=== PATIENT | female | born 1985 | race Caucasian/White ===

== ENCOUNTER 2019-02-24 02:34 | Emergency (ER) | payer OTHER ==
--- NOTE | 2019-02-24 03:48 | PDOC ---
Attending Attestation - Resident Resident Name: Aashish Alicia - ED Attending Attestation I have performed the following: I have examined & evaluated the patient, The case was reviewed & discussed with the resident, I agree w/resident's findings & plan - HPI HPI: 02/24/19 04:39 33-year-old female complaining of right flank/right lower quadrant and right suprapubic pain, patient states she's taken several doses of Bactrim without improvement. According to the patient she was told her urine had some blood and due to the dysuria she was given antibiotics. There is no associated vomiting. - Physicial Exam PE: 02/24/19 04:40 Agree with resident's exam - Medical Decision Making 02/24/19 04:42 33-year-old female with suprapubic/right flank pain Plan for labs urinalysis and CT scan for further evaluation IV fluid normal saline given Differential diagnosis includes pyelonephritis, renal colic, cystitis Likely discharge home pending results
[2019-02-24 03:49] VITALS: BMI 24.1
--- NOTE | 2019-02-24 04:31 | PDOC ---
History of Present Illness - General Chief Complaint: Pain Stated Complaint: ABD/BACK PAIN Time Seen by Provider: 02/24/19 03:46 - History of Present Illness Initial Comments: 02/24/19 04:28 33f with no pmh presents to the ED for persistent right flank pain and LRQ pain with dysuria since . She went to a Urgent Care clinic on and was diagnosed with UTi, given a preseciption for 3 days of bactrim Ds BID that she obtained on Saturday. She claims her symptoms persist and that she now has pain over her right back too. Denies fever, chills, Past History - Past Medical History Allergies/Adverse Reactions: Allergies Allergy/AdvReac Type Severity Reaction Status Date / Time No Known Allergies Allergy Verified 02/24/19 03:49 - Suicide/Smoking/Psychosocial Hx Smoking History: Never smoked Have you smoked in the past 12 months: No Information on smoking cessation initiated: No Hx Alcohol Use: No Drug/Substance Use Hx: No *Physical Exam - Vital Signs Last Vital Signs Temp Pulse Resp BP Pulse Ox 98.1 F 70 19 108/69 100 02/24/19 02:34 02/24/19 02:34 02/24/19 02:34 02/24/19 02:34 02/24/19 02:34 *DC/Admit/Observation/Transfer - Discharge Dispostion Condition at time of disposition: Fair - Referrals Referrals: Long Kenny [Primary Care Provider] - - Patient Instructions - Post Discharge Activity
[2019-02-24 04:37] LABS: BASO % 0.8 % (0-2.0); EOS % 1.7 % (0-4.5); HEMATOCRIT 37.5 % (32.4-45.2); LYMPH % 29.6 % (8-40); MCH 31.7 pg (25.7-33.7); MCHC 34.7 g/dl (32.0-36.0); MEAN CELL VOLUME 91.2 fl (80-96); MONO % 10.3 % (3.8-10.2); NEUT % 57.6 % (42.8-82.8); PLATELET COUNT 187 K/MM3 (134-434); RBC 4.11 M/mm3 (3.60-5.2); RDW 12.7 % (11.6-15.6); WHITE BLOOD COUNT 6.4 K/mm3 (4.0-10.0)
--- NOTE | 2019-02-24 04:49 | PDOC ---
History of Present Illness - General Chief Complaint: Pain Stated Complaint: ABD/BACK PAIN Time Seen by Provider: 02/24/19 03:46 - History of Present Illness Initial Comments: 02/24/19 04:44 33f with no pmh presents to the ED for persistent right flank pain and LRQ pain with dysuria since . She went to a Urgent Care clinic on and was diagnosed with UTi, given a preseciption for 3 days of bactrim Ds BID that she obtained on Saturday. She claims her symptoms persist and that she now has pain over her right back too. Denies fever, chills, Past History - Past Medical History Allergies/Adverse Reactions: Allergies Allergy/AdvReac Type Severity Reaction Status Date / Time No Known Allergies Allergy Verified 02/24/19 03:49 - Suicide/Smoking/Psychosocial Hx Smoking History: Never smoked Have you smoked in the past 12 months: No Information on smoking cessation initiated: No Hx Alcohol Use: No Drug/Substance Use Hx: No Review of Systems - Review of Systems Able to Perform ROS?: Yes Is the patient limited Burmese proficient: No Constitutional: No: Symptoms Reported HEENTM: No: Symptoms Reported Respiratory: No: Symptoms reported Cardiac (ROS): No: Symptoms Reported ABD/GI: No: Symptoms Reported : Yes: See HPI, Flank Pain (right) Musculoskeletal: No: Symptoms Reported Integumentary: No: Symptoms Reported Neurological: No: Symptoms reported All Other Systems: Reviewed and Negative *Physical Exam - Vital Signs Last Vital Signs Temp Pulse Resp BP Pulse Ox 98.1 F 70 19 108/69 100 02/24/19 02:34 02/24/19 02:34 02/24/19 02:34 02/24/19 02:34 02/24/19 02:34 - Physical Exam General Appearance: Yes: Nourished, Appropriately Dressed. No: Apparent Distress HEENT: positive: EOMI, DEEP, Normal ENT Inspection Respiratory/Chest: positive: Lungs Clear, Normal Breath Sounds. negative: Chest Tender, Respiratory Distress Cardiovascular: positive: Regular Rhythm, Regular Rate, S1, S2 Female Pelvic Exam: positive: normal external exam (some white, cottage-cheese- like discharge), CMT, other (extreme tenderness upon digital and speculum inspection) Gastrointestinal/Abdominal: positive: Normal Bowel Sounds, Tender (LRQ, suprapubic), Flat, Soft Musculoskeletal: positive: CVA Tenderness (R) Neurologic: positive: Fully Oriented, Alert, Normal Mood/Affect ED Treatment Course - LABORATORY CBC & Chemistry Diagram: 02/24/19 04:17 02/24/19 04:17 Medical Decision Making - Medical Decision Making 02/24/19 05:53 33-year-old female with suprapubic/right flank pain Plan for labs urinalysis and CT scan for further evaluation IV fluid normal saline given Normal basic labs.. questionable urine with small bacteria and trace blood. Pelvic exam significant for tenderness during exam and whitish discharge. Differential diagnosis includes PID, abscess, appendicitis 02/24/19 07:14 Patient signed out to Dr. Trevino *DC/Admit/Observation/Transfer Diagnosis at time of Disposition: Abdominal pain - Discharge Dispostion Condition at time of disposition: Fair - Referrals Referrals: Long Kenny [Primary Care Provider] - - Patient Instructions - Post Discharge Activity
[2019-02-24] MEDS ORDERED: SODIUM CHLORIDE 1,000 ML IV STA (04:52)
[2019-02-24 04:57] LABS: EPI CELLS 1.8 /HPF (0-5/HPF); PH,URINE 5.5 (5.0-8.0); URINE APPEARANCE CLEAR; URINE BACTERIA 18.5 /hpf (NEGATIVE); URINE BILIRUBIN NEGATIVE (NEGATIVE); URINE CASTS 4 /lpf (0-8); URINE COLOR YELLOW; URINE GLUCOSE (UA) NEGATIVE (NEGATIVE); URINE KETONE NEGATIVE (NEGATIVE); URINE LEUK ESTERASE NEGATIVE (NEGATIVE); URINE NITRITE NEGATIVE (NEGATIVE); URINE PROTEIN NEGATIVE (NEGATIVE); URINE RBC 1 /hpf (0-4); URINE UROBILINOGEN 0.2 mg/dL (0.2-1.0); URINE WBC 1 /hpf (0-5)
[2019-02-24 04:59] LABS: ALBUMIN 3.9 g/dl (3.4-5.0); ALK PHOS 51 U/L (45-117); ANION GAP 8 MMOL/L (8-16); BILIRUBIN,TOTAL 0.5 mg/dL (0.2-1); BLOOD UREA NITROGEN 11 mg/dL (7-18); CALCIUM 8.8 mg/dL (8.5-10.1); CHLORIDE 103 mmol/L (98-107); CO2 25 mmol/L (21-32); CREATININE 0.8 mg/dL (0.55-1.3); GLUCOSE,RANDOM 85 mg/dL (74-106); POTASSIUM 3.5 mmol/L (3.5-5.1); SGOT/AST 28 U/L (15-37); SGPT/ALT 43 U/L (13-61); SODIUM 136 mmol/L (136-145); TOT PROT 7.6 g/dl (6.4-8.2)
[2019-02-24 05:24] LABS: HCG,QUALITATIVE URINE Negative
[2019-02-24] MEDS ORDERED: DOXYCYCLINE HYCLATE 100 MG CAPSULE PO ONE ×2 (05:50→06:19)
[2019-02-24] MEDS ORDERED: cefTRIAXone SODIUM 1 GM VIAL ONE (06:19)
[2019-02-24] MEDS ORDERED: LIDOCAINE HCL 1%, 10 MG/ML (20ML VIAL) ONE (06:19)
[2019-02-24] MEDS ORDERED: ONDANSETRON 4 MG/2 ML VIAL IVPUSH ONE (07:32)
--- NOTE | 2019-02-24 07:40 | PDOC ---
*Physical Exam - Vital Signs Last Vital Signs Temp Pulse Resp BP Pulse Ox 98.1 F 82 19 103/64 99 02/24/19 06:18 02/24/19 06:18 02/24/19 02:34 02/24/19 06:18 02/24/19 06:18 ED Treatment Course - LABORATORY CBC & Chemistry Diagram: 02/24/19 04:17 02/24/19 04:17 - ADDITIONAL ORDERS Additional order review: Laboratory Results 02/24/19 02/24/19 04:17 04:15 Sodium 136 Potassium 3.5 Chloride 103 Carbon Dioxide 25 Anion Gap 8 BUN 11 Creatinine 0.8 Creat Clearance w eGFR 82.61 Random Glucose 85 Calcium 8.8 Total Bilirubin 0.5 AST 28 ALT 43 Alkaline Phosphatase 51 Total Protein 7.6 Albumin 3.9 Urine Color Yellow Urine Appearance Clear Urine pH 5.5 Ur Specific Clyde 1.021 Urine Protein Negative Urine Glucose (UA) Negative Urine Ketones Negative Urine Blood Trace Urine Nitrite Negative Urine Bilirubin Negative Urine Urobilinogen 0.2 Ur Leukocyte Esterase Negative Urine WBC (Auto) 1 Urine RBC (Auto) 1 Urine Casts (Auto) 4 U Epithel Cells (Auto) 1.8 Urine Bacteria (Auto) 18.5 Urine HCG, Qual Negative 02/24/19 04:17 RBC 4.11 MCV 91.2 MCHC 34.7 RDW 12.7 MPV 9.0 Neutrophils % 57.6 Lymphocytes % 29.6 Monocytes % 10.3 H Eosinophils % 1.7 Basophils % 0.8 - Medications Given in the ED: ED Medications Discontinued Medications Generic Name Dose Route Start Last Admin Trade Name Freq PRN Reason Stop Dose Admin Ceftriaxone Sodium 250 mg 02/24/19 05:47 02/24/19 06:25 Rocephin - IM 02/24/19 05:48 250 mg ONCE ONE Administration Doxycycline Hyclate 100 mg 02/24/19 05:50 02/24/19 06:25 Vibramycin - PO 02/24/19 05:51 100 mg ONCE ONE Administration Sodium Chloride 1,000 mls @ 1,000 mls/hr 02/24/19 04:52 02/24/19 05:08 Normal Saline - IV 02/24/19 05:51 1,000 mls/hr ASDIR STA Administration Medical Decision Making - Medical Decision Making 02/24/19 07:39 33F signed out to me by Dr. Alicia who presents with 1 week of RLQ abdominal pain. On my exam, pt is tender and complained of nausea which is a new complaint for pt. Will give antiemetics. Pending TVUS and possible CTAP. Pt aware. 02/24/19 10:02 TV US shows fibroid which pt is aware of. Pt continues to have tenderness on exam but states that the pain is improved c/w her initial presentation. Will order CTAP. 02/24/19 11:35 CTAP shows involuting R ovarian cyst w/o signs of appendicitis. Will treat for PID and d/c with [employer] f/u. Pt no longer tender on exam. *DC/Admit/Observation/Transfer Diagnosis at time of Disposition: Abdominal pain Qualifiers: Abdominal location: lower abdomen, unspecified Qualified Code(s): R10.30 - Lower abdominal pain, unspecified - Discharge Dispostion Disposition: HOME Condition at time of disposition: Stable Decision to Admit order: No - Prescriptions Prescriptions: Doxycycline Hyclate 100 mg PO BID #28 tablet - Referrals Referrals: Long Kenny [Primary Care Provider] - - Patient Instructions Printed Discharge Instructions: Pelvic Inflammatory Disease Additional Instructions: Your ER visit is not complete until your follow up with your [employer] and primary care doctor. Please follow up with your [employer] and primary care physician in 1-2 days. Please return to the ER if you have any signs or symptoms of chest pain, shortness of breath, uncontrollable fever, chills, nausea, vomiting, numbness, tingling, or weakness in any part of your body, changes in vision, or slurred speech. Please take your medications as prescribed. Please return to the ER if symptoms persist, worsen, or new symptoms arise. - Post Discharge Activity
[2019-02-24] MEDS ORDERED: ONDANSETRON 4 MG/2 ML VIAL ONE (07:57)
[2019-02-24 10:14] VITALS: BP 108/68; PULSE 80; TEMP 98.6
== END 2019-02-24 12:17 | disposition home or self-care (01) ==
LOC: JER 02:34
PROC: 3E02329 Introduction of Other Anti-infective into Muscle, Percutaneous Approach (ICD-10-PCS; principal; 2019-02-24)
PROC: 3E0337Z Introduction of Electrolytic and Water Balance Substance into Peripheral Vein, Percutaneous Approach (ICD-10-PCS; 2019-02-24)
PROC: 3E033GC Introduction of Other Therapeutic Substance into Peripheral Vein, Percutaneous Approach (ICD-10-PCS; 2019-02-24)
DX: N73.8 Other specified female pelvic inflammatory diseases (principal); N83.201 Unspecified ovarian cyst, right side
CPT/HCPCS: 36415; 74177-TC; 76830-TC; 80053; 81003; 84703; 85025; 87086; 99282-25; J7030